=== PATIENT | female | born 1965 | race Caucasian/White ===

== ENCOUNTER 2017-10-25 09:20 | Inpatient (IN) | payer OTHER ==
[2017-10-25] MEDS: BUPIVACAINE 0.25% (MPF) 30 ML INJ INJ
[2017-10-25] MEDS: POLYMYXIN/BACITRACIN 1L IRRIG IRR
[~2017-10-25 09:20] MED LIST: CEFAZOLIN 2 GM/50 ML (PMX) 50 ML IVPB; METOCLOPRAMIDE 10 MG INJ; SOD CHLORIDE 0.9% 1,000 ML IV
[2017-10-25] MEDS ORDERED: BUPIVACAINE 0.25% (MPF) 30 ML INJ (11:41)
[2017-10-25] MEDS ORDERED: POLYMYXIN/BACITRACIN 1L IRRIG (11:41)
[2017-10-25] MEDS ORDERED: PROPOFOL 20 ML (12:16)
[2017-10-25] MEDS ORDERED: NEOSTIGMINE 3 MG/3 ML SYRINGE ×2 (12:16→12:42)
[2017-10-25] MEDS ORDERED: GLYCOPYRROLATE 0.4 MG INJ ×3 (12:16→12:43)
[2017-10-25] MEDS ORDERED: ROCURONIUM 50 MG INJ (12:16)
[2017-10-25] MEDS ORDERED: SUCCINYLCHOLINE CHLORIDE 100 MG/5 ML SYG IV (12:16)
[2017-10-25] MEDS ORDERED: LIDOCAINE 2% (SDV) 5 ML INJ (12:16)
[2017-10-25] MEDS ORDERED: MEPERIDINE 100 MG INJ (12:17)
[2017-10-25] MEDS ORDERED: MEPERIDINE 25 MG INJ IV (12:30)
[2017-10-25] MEDS ORDERED: METOCLOPRAMIDE 10 MG INJ IV (12:30)
[2017-10-25] MEDS ORDERED: OXYCODONE/ACETAMINOPHEN (5/325) TAB PO ×2 (12:30)
[2017-10-25] MEDS ORDERED: FENTAnyl 50 MCG/ML VIAL IV (12:30)
[2017-10-25] MEDS ORDERED: DIPHENHYDRAMINE 50 MG INJ IV (12:30)
[2017-10-25] MEDS ORDERED: HYDROmorphONE (0.2 MG/ML) 10ML SYG IV (12:30)
[2017-10-25] MEDS ORDERED: hydrALAzine 20 MG INJ IV (12:30)
[2017-10-25] MEDS ORDERED: MIDAZOLAM 1 MG/ML 2 ML INJ IV (12:30)
[2017-10-25] MEDS ORDERED: LABETALOL HCL 20MG INJ IV (12:30)
[2017-10-25] MEDS ORDERED: EPHEDrine SULFATE 50 MG/5 ML SYG IV (12:30)
[2017-10-25] MEDS ORDERED: CEFAZOLIN 1 GM INJ (12:42)
[2017-10-25] MEDS ORDERED: ONDANSETRON 4 MG INJ (13:00)
[2017-10-25] MEDS: SOD CHLORIDE 0.9% 1,000 ML IV ×2 (13:37→23:48)
[2017-10-25] MEDS: FENTAnyl 50 MCG/ML VIAL IV ×3 (14:11→14:56)
[2017-10-25] MEDS: HYDROmorphONE (0.2 MG/ML) 10ML SYG IV ×3 (14:11→14:56)
[2017-10-25] MEDS: AMPICILLIN/SULB 3 GM/NS (PMX) 100 ML IVPB ×2 (14:54→20:09)
[2017-10-25] MEDS: morphine 2 MG INJ IV ×5 (15:15→22:24)
[2017-10-25] MEDS: ONDANSETRON 4 MG INJ IV (15:16)
[2017-10-25 15:37] LABS: ADD MAN DIFF? NO
[2017-10-25 15:39] LABS: BASOPHILS % 0.3 % (0.0-2.0); EOSINOPHILS # 0.1 10^3/ul (0.0-0.5); EOSINOPHILS % 0.5 % (0.0-7.0); HEMATOCRIT 42.1 % (37.0-47.0); HEMOGLOBIN 13.2 g/dl (12.0-16.0); LYMPHOCYTES # 1.6 10^3/ul (0.8-2.9); LYMPHOCYTES % 11.7 % (15.0-51.0); MEAN CORPUSCULAR HEMOGLOBIN 28.4 pg (29.0-33.0); MEAN CORPUSCULAR HGB CONC 31.4 g/dl (32.0-37.0); MEAN CORPUSCULAR VOLUME 90.7 fl (82.0-101.0); MEAN PLATELET VOLUME 9.9 fl (7.4-10.4); MONOCYTE # 0.5 10^3/ul (0.3-0.9); MONOCYTES % 4.1 % (0.0-11.0); NEUTROPHILS % 83.1 % (39.0-77.0); PLATELET COUNT 222 10^3/UL (140-415); RED BLOOD COUNT 4.64 10^6/ul (4.20-5.40); RED CELL DISTRIBUTION WIDTH 12.9 % (11.5-14.5)
[2017-10-25 15:39] LABS: WHITE BLOOD COUNT 13.2 10^3/ul (4.8-10.8)
[2017-10-25 15:45] LABS: HOLD TRANSMISSIONS 1
[2017-10-25 15:59] LABS: ALANINE AMINOTRANSFERASE 20 IU/L (13-69); ALBUMIN 3.4 g/dl (3.3-4.9); ALBUMIN/GLOBULIN RATIO 1.25; ALKALINE PHOSPHATASE 53 IU/L (42-121); ANION GAP 12 (8-16); ASPARTATE AMINO TRANSFERASE 24 IU/L (15-46); BILIRUBIN,INDIRECT 0.2 mg/dl (0-1.1); BILIRUBIN,TOTAL 0.2 mg/dl (0.2-1.3); CARBON DIOXIDE 23 mmol/L (21-31); CHLORIDE 109 mmol/L (97-110); GLUCOSE 103 mg/dl (70-220); TOTAL PROTEIN 6.1 g/dl (6.1-8.1)
[2017-10-25 16:02] LABS: BLOOD UREA NITROGEN 6 mg/dl (7-20); CREATININE 0.67 mg/dl (0.44-1.00); SODIUM 140 mmol/L (135-144)
[2017-10-25] MEDS: HYDROCODONE/APAP (5/325) TAB PO (19:03)
[2017-10-25] MEDS ORDERED: morphine 2 MG INJ IV (20:00)
[2017-10-25] MEDS: DIPHENHYDRAMINE 50 MG INJ IV (21:35)
[2017-10-25] MEDS: LORAZEPAM 1 MG TAB PO (23:48)
[2017-10-26] MEDS: morphine 2 MG INJ IV ×11 (00:53→22:35)
[2017-10-26] MEDS: ACETAMINOPHEN 1000MG/100ML IV 100 ML IVPB (00:54)
[2017-10-26] MEDS: AMPICILLIN/SULB 3 GM/NS (PMX) 100 ML IVPB ×2 (01:29→09:28)
[2017-10-26] MEDS: DIPHENHYDRAMINE 50 MG INJ IV ×3 (04:03→16:11)
[2017-10-26] MEDS: HYDROCODONE/APAP (5/325) TAB PO ×3 (04:19→16:11)
[2017-10-26 04:53] LABS: ADD MAN DIFF? NO
[2017-10-26 04:58] LABS: BASOPHILS % 0.1 % (0.0-2.0); EOSINOPHILS # 0.2 10^3/ul (0.0-0.5); EOSINOPHILS % 1.8 % (0.0-7.0); HEMATOCRIT 36.8 % (37.0-47.0); HEMOGLOBIN 11.9 g/dl (12.0-16.0); LYMPHOCYTES # 1.5 10^3/ul (0.8-2.9); MEAN CORPUSCULAR HEMOGLOBIN 28.3 pg (29.0-33.0); MEAN CORPUSCULAR HGB CONC 32.3 g/dl (32.0-37.0); MEAN CORPUSCULAR VOLUME 87.6 fl (82.0-101.0); MONOCYTE # 0.5 10^3/ul (0.3-0.9); MONOCYTES % 6.2 % (0.0-11.0); NEUTROPHIL # 6.3 10^3/ul (1.6-7.5); NEUTROPHILS % 73.5 % (39.0-77.0); PLATELET COUNT 224 10^3/UL (140-415)
[2017-10-26 04:58] LABS: WHITE BLOOD COUNT 8.5 10^3/ul (4.8-10.8)
[2017-10-26 05:20] LABS: ALANINE AMINOTRANSFERASE 51 IU/L (13-69); ALBUMIN 2.9 g/dl (3.3-4.9); ALKALINE PHOSPHATASE 54 IU/L (42-121); ANION GAP 8 (8-16); ASPARTATE AMINO TRANSFERASE 63 IU/L (15-46); BILIRUBIN,INDIRECT 0.8 mg/dl (0-1.1); BILIRUBIN,TOTAL 0.8 mg/dl (0.2-1.3); BLOOD UREA NITROGEN 5 mg/dl (7-20); CALCIUM 7.9 mg/dl (8.4-10.2); CARBON DIOXIDE 30 mmol/L (21-31); CHLORIDE 108 mmol/L (97-110); CREATININE 0.74 mg/dl (0.44-1.00); GLUCOSE 94 mg/dl (70-220); POTASSIUM 3.7 mmol/L (3.5-5.1); SODIUM 142 mmol/L (135-144); TOTAL PROTEIN 5.3 g/dl (6.1-8.1)
[2017-10-26] MEDS: SOD CHLORIDE 0.9% 1,000 ML IV ×2 (09:37→16:12)
[2017-10-26] MEDS: LORAZEPAM 1 MG TAB PO (20:24)
[2017-10-27] MEDS: HYDROCODONE/APAP (5/325) TAB PO ×4 (00:14→21:13)
[2017-10-27] MEDS: DIPHENHYDRAMINE 50 MG INJ IV (00:14)
[2017-10-27] MEDS: morphine 2 MG INJ IV ×8 (01:47→22:20)
[2017-10-27 05:31] LABS: ADD MAN DIFF? NO; BASOPHILS % 0.2 % (0.0-2.0); EOSINOPHILS # 0.4 10^3/ul (0.0-0.5); EOSINOPHILS % 4.4 % (0.0-7.0); HEMATOCRIT 36.1 % (37.0-47.0); HEMOGLOBIN 11.4 g/dl (12.0-16.0); LYMPHOCYTES # 1.8 10^3/ul (0.8-2.9); LYMPHOCYTES % 21.2 % (15.0-51.0); MEAN CORPUSCULAR HEMOGLOBIN 28.2 pg (29.0-33.0); MEAN CORPUSCULAR HGB CONC 31.6 g/dl (32.0-37.0); MEAN CORPUSCULAR VOLUME 89.4 fl (82.0-101.0); MEAN PLATELET VOLUME 10.3 fl (7.4-10.4); MONOCYTE # 0.7 10^3/ul (0.3-0.9); NEUTROPHIL # 5.5 10^3/ul (1.6-7.5); PLATELET COUNT 226 10^3/UL (140-415); RED BLOOD COUNT 4.04 10^6/ul (4.20-5.40); RED CELL DISTRIBUTION WIDTH 13.1 % (11.5-14.5)
[2017-10-27 05:31] LABS: WHITE BLOOD COUNT 8.3 10^3/ul (4.8-10.8)
[2017-10-27] MEDS: SOD CHLORIDE 0.9% 1,000 ML IV ×2 (05:37→15:37)
[2017-10-27] MEDS: KETOROLAC 30 MG INJ IV ×2 (12:42→18:00)
[2017-10-27] MEDS: LORAZEPAM 1 MG TAB PO (21:13)
[2017-10-28] MEDS: DIPHENHYDRAMINE 50 MG INJ IV ×2 (00:25→21:40)
[2017-10-28] MEDS: morphine 2 MG INJ IV ×9 (00:25→21:39)
[2017-10-28] MEDS: HYDROCODONE/APAP (5/325) TAB PO ×2 (04:25→15:51)
[2017-10-28 05:46] LABS: ADD MAN DIFF? NO
[2017-10-28] MEDS: KETOROLAC 30 MG INJ IV ×5 (05:54→18:19)
[2017-10-28 06:13] LABS: WHITE BLOOD COUNT 7.5 10^3/ul (4.8-10.8)
[2017-10-28 06:13] LABS: BASOPHILS % 0.1 % (0.0-2.0); EOSINOPHILS # 0.4 10^3/ul (0.0-0.5); EOSINOPHILS % 5.8 % (0.0-7.0); HEMATOCRIT 36.4 % (37.0-47.0); HEMOGLOBIN 11.6 g/dl (12.0-16.0); MEAN CORPUSCULAR HEMOGLOBIN 28.2 pg (29.0-33.0); MEAN CORPUSCULAR HGB CONC 31.9 g/dl (32.0-37.0); MEAN CORPUSCULAR VOLUME 88.6 fl (82.0-101.0); MEAN PLATELET VOLUME 10.5 fl (7.4-10.4); MONOCYTE # 0.5 10^3/ul (0.3-0.9); NEUTROPHIL # 4.4 10^3/ul (1.6-7.5); NEUTROPHILS % 59.6 % (39.0-77.0); PLATELET COUNT 249 10^3/UL (140-415); RED BLOOD COUNT 4.11 10^6/ul (4.20-5.40); RED CELL DISTRIBUTION WIDTH 12.9 % (11.5-14.5)
[2017-10-28 06:38] LABS: ANION GAP 11 (8-16); BLOOD UREA NITROGEN 4 mg/dl (7-20); CALCIUM 8.7 mg/dl (8.4-10.2); CARBON DIOXIDE 30 mmol/L (21-31); CHLORIDE 102 mmol/L (97-110); CREATININE 0.71 mg/dl (0.44-1.00); GLUCOSE 104 mg/dl (70-220); POTASSIUM 3.7 mmol/L (3.5-5.1); SODIUM 139 mmol/L (135-144)
[2017-10-28] MEDS: LORAZEPAM 1 MG TAB PO (23:03)
[2017-10-29] MEDS: morphine 2 MG INJ IV ×8 (00:09→23:09)
[2017-10-29] MEDS: HYDROCODONE/APAP (5/325) TAB PO ×3 (02:10→13:42)
[2017-10-29] MEDS: DIPHENHYDRAMINE 50 MG INJ IV ×2 (04:14→23:09)
[2017-10-29] MEDS: KETOROLAC 30 MG INJ IV ×4 (06:00→18:00)
[2017-10-29] MEDS: LORAZEPAM 1 MG TAB PO (21:41)
[2017-10-30] MEDS: HYDROCODONE/APAP (5/325) TAB PO ×3 (01:37→12:11)
[2017-10-30 05:16] LABS: ADD MAN DIFF? NO
[2017-10-30 05:22] LABS: BASOPHILS % 0.5 % (0.0-2.0); EOSINOPHILS # 0.6 10^3/ul (0.0-0.5); EOSINOPHILS % 9.5 % (0.0-7.0); HEMATOCRIT 35.6 % (37.0-47.0); HEMOGLOBIN 11.2 g/dl (12.0-16.0); LYMPHOCYTES # 2.1 10^3/ul (0.8-2.9); LYMPHOCYTES % 35.3 % (15.0-51.0); MEAN CORPUSCULAR HEMOGLOBIN 27.9 pg (29.0-33.0); MEAN CORPUSCULAR HGB CONC 31.5 g/dl (32.0-37.0); MEAN CORPUSCULAR VOLUME 88.6 fl (82.0-101.0); MEAN PLATELET VOLUME 10.1 fl (7.4-10.4); MONOCYTE # 0.5 10^3/ul (0.3-0.9); MONOCYTES % 8.7 % (0.0-11.0); NEUTROPHIL # 2.7 10^3/ul (1.6-7.5); NEUTROPHILS % 45.5 % (39.0-77.0); PLATELET COUNT 273 10^3/UL (140-415); RED BLOOD COUNT 4.02 10^6/ul (4.20-5.40); RED CELL DISTRIBUTION WIDTH 12.7 % (11.5-14.5)
[2017-10-30 05:43] LABS: ANION GAP 11 (8-16); BLOOD UREA NITROGEN 3 mg/dl (7-20); CALCIUM 8.8 mg/dl (8.4-10.2); CARBON DIOXIDE 27 mmol/L (21-31); CHLORIDE 107 mmol/L (97-110); CREATININE 0.69 mg/dl (0.44-1.00); GLUCOSE 115 mg/dl (70-220); POTASSIUM 3.9 mmol/L (3.5-5.1); SODIUM 141 mmol/L (135-144)
[2017-10-30] MEDS: KETOROLAC 30 MG INJ IV ×2 (06:00)
[2017-10-30] MEDS: morphine 2 MG INJ IV (09:36)
[2017-10-30] MEDS: LORAZEPAM 1 MG TAB PO (14:03)
== END 2017-10-30 15:50 | disposition home or self-care (01) | DRG 354 ==
LOC: SDS 09:20 → REC 13:39 → MS1 16:03
PROC: 0WUF0JZ Supplement Abdominal Wall with Synthetic Substitute, Open Approach (ICD-10-PCS; principal; 2017-10-25 12:00)
PROC: 30233N1 Transfusion of Nonautologous Red Blood Cells into Peripheral Vein, Percutaneous Approach (ICD-10-PCS; 2017-10-25 12:20)
DX: K43.0 Incisional hernia with obstruction, without gangrene (principal); Z68.41 Body mass index [BMI] 40.0-44.9, adult; E66.9 Obesity, unspecified; Z71.3 Dietary counseling and surveillance; Z93.3 Colostomy status
CPT/HCPCS: 80048; 80053; 85025; 86850; 86900; 86901; 86920; 99217

== ENCOUNTER 2019-01-20 11:38 | Emergency (ER) | payer OTHER ==
[2019-01-20 12:58] LABS: ADD MAN DIFF? NO
[2019-01-20 13:00] LABS: BASOPHIL # 0.1 10^3/ul (0.0-0.1); BASOPHILS % 0.7 % (0.0-2.0); EOSINOPHILS # 0.2 10^3/ul (0.0-0.5); EOSINOPHILS % 2.4 % (0.0-7.0); HEMATOCRIT 40.9 % (37.0-47.0); HEMOGLOBIN 13.2 g/dl (12.0-16.0); LYMPHOCYTES # 2.3 10^3/ul (0.8-2.9); LYMPHOCYTES % 25.1 % (15.0-51.0); MEAN CORPUSCULAR HEMOGLOBIN 28.7 pg (29.0-33.0); MEAN CORPUSCULAR HGB CONC 32.3 g/dl (32.0-37.0); MEAN CORPUSCULAR VOLUME 88.9 fl (82.0-101.0); MEAN PLATELET VOLUME 10.1 fl (7.4-10.4); MONOCYTE # 0.5 10^3/ul (0.3-0.9); MONOCYTES % 5.4 % (0.0-11.0); PLATELET COUNT 274 10^3/UL (140-415); RED CELL DISTRIBUTION WIDTH 12.6 % (11.5-14.5)
[2019-01-20] MEDS: HYDROmorphONE 1 MG/ML SYG IV (13:08)
[2019-01-20] MEDS: ONDANSETRON 4 MG INJ IV (13:08)
[2019-01-20] MEDS: SOD CHLORIDE 0.9% 1,000 ML IV (13:08)
[2019-01-20 13:17] LABS: ADD UMIC NO; UR ASCORBIC ACID NEGATIVE (NEGATIVE); UR BILIRUBIN (Dip) NEGATIVE (NEGATIVE); UR BLOOD (Dip) NEGATIVE (NEGATIVE); UR CLARITY CLEAR (CLEAR); UR COLOR YELLOW (YELLOW); UR GLUCOSE (Dip) NEGATIVE (NEGATIVE); UR KETONES (Dip) NEGATIVE (NEGATIVE); UR LEUKOCYTE ESTERASE (Dip) NEGATIVE Leu/ul (NEGATIVE); UR NITRITE (Dip) NEGATIVE (NEGATIVE); UR SPECIFIC GRAVITY (Dip) 1.009 (1.003-1.030); UR TOTAL PROTEIN (Dip) NEGATIVE (NEGATIVE); UR UROBILINOGEN (Dip) NEGATIVE (NEGATIVE)
[2019-01-20 13:29] LABS: ALANINE AMINOTRANSFERASE 18 IU/L (13-69); ALBUMIN 3.9 g/dl (3.3-4.9); ALBUMIN/GLOBULIN RATIO 1.39; ALKALINE PHOSPHATASE 61 IU/L (42-121); ANION GAP 8 (5-13); ASPARTATE AMINO TRANSFERASE 24 IU/L (15-46); BILIRUBIN,INDIRECT 0.3 mg/dl (0-1.1); BILIRUBIN,TOTAL 0.3 mg/dl (0.2-1.3); BLOOD UREA NITROGEN 8 mg/dl (7-20); CARBON DIOXIDE 26 mmol/L (21-31); CHLORIDE 109 mmol/L (97-110); CREATININE 0.61 mg/dl (0.44-1.00); Estimated GFR > 60 mL/min (>60); GLUCOSE 113 mg/dl (70-220); LIPASE 85 U/L (23-300); POTASSIUM 4.3 mmol/L (3.5-5.1); SODIUM 143 mmol/L (135-144); TOTAL PROTEIN 6.7 g/dl (6.1-8.1)
[2019-01-20] MEDS: HYDROmorphONE 0.5 MG/0.5 ML SYG IV (14:28)
[2019-01-20] MEDS: LACTULOSE ENEMA 1,000 ML BTL PR (15:36)
== END 2019-01-20 16:28 | disposition home or self-care (01) ==
LOC: E/R 16:28
DX: K59.02 Outlet dysfunction constipation (principal)
CPT/HCPCS: 36415; 74176; 80053; 81003; 81025; 83690; 85025; 96374; 96375; 96376; 99285-25